=== PATIENT | female | born 1990 | race Caucasian/White ===

== ENCOUNTER 2017-03-26 14:18 | Emergency (ER) | payer MEDICAID ==
[~2017-03-26] VITALS: Ht 160 cm; Wt 108.9 kg
[~2017-03-26 14:18] MED LIST: PREN1CAP7 PO
--- NOTE | 2017-03-26 15:12 | PD ---
HPI Chief Complaint Decreased movement Travel History International Travel<30 Days: No Contact w/Intl Traveler<30Days: No Known Affected Area: No History of Present Illness HPI Patient is a 26-year-old female smoker who is @43 weeks who presents to triage with concerns for decreased movement. Denies bleeding, leakage of fluid, and painful contractions. She noticed the baby didn't move after she got up from sitting, which she notices usually happens. Did not notice a day removing after that. He was evaluated by Dr. Blount for consultation. Told she was eligible, C- section was scheduled for this Sunday. In the course of her , patient has not had any abnormal labs, procedures, or hospitalizations. Has had 2 abnormal Pap smears, was told that it would be repeated after the baby is born. No history of STDs. History Past Medical History Medical History: Denies Significant Hx Obstetric History Obstetric History Prior delivery was via (due to failure to progress) on 12/13/2010 at 41 weeks; baby girl, weight of 7 lbs. 7 oz. Past Surgical History Surgical History: No Previous Surgery Family History Family History: Negative Social History Alcohol Use: No Tobacco Use: Yes (5 pack years) Substance Abuse: No Allergies-Medications (Allergen,Severity, Reaction): Coded Allergies: No Known Allergies (Verified , 03/21/17) Home Meds Reported Medications W/O Vit A W/ Fe Fumar (Citranatal [place]) 27-1-260 Mg Cap, 1 CAP PO DAILY for Nutritional Supplement, #30 CAP 0 Refills 01/31/17 Review of Systems General / Constitutional: No: Weight Gain Eyes: No: Visual changes HENT: Headaches Cardiovascular: No: Chest Pain or Discomfort Respiratory: No: Short of Breath Gastrointestinal: No: Abdominal Pain Genitourinary: No: Urgency Neurologic: No: Headache Physical Exam Narrative GENERAL: Well-nourished, well-developed patient. SKIN: Warm and dry. HEAD: Normocephalic and atraumatic. EYES: No scleral icterus. No injection or drainage. ENT: No nasal drainage noted. Mucous membranes pink. Airway patent. NECK: Supple, trachea midline. No JVD. CARDIOVASCULAR: Regular rate and rhythm without murmurs, gallops, or rubs. RESPIRATORY: Breath sounds equal bilaterally. No accessory muscle use. ABDOMEN/GI: Abdomen soft, non-tender, bowel sounds present, no rebound, no guarding Gravid to 40 weeks size GENITOURINARY: External Genitalia: intact and normal in appearance Cervix: Posterior Dilatation: 1 cm Effacement: 0% Station: -3 Presentation: Vertex Membranes: Intact Uterine Contractions: None FHT's: Category: 1 Baseline: 150 Reactive: Yes Variability: Moderate Decels: None EXTREMITIES: No cyanosis or edema. BACK: Nontender without obvious deformity. No CVA tenderness. NEUROLOGICAL: Awake and alert. Motor and sensory grossly within normal limits. Five out of 5 muscle strength in all muscle groups. Normal speech. Data Data Orders Orders Vital Signs (Adult) .ON ADMISSION (03/26/17 15:02) ^ Labor Status (03/26/17 15:02) ^ Hydration (03/26/17 15:02) MDM Interpretation(s) Patient is a 26-year-old female who is at 43 weeks who presents for decreased movement. Patient was assessed via cervical exam, findings in line with normal . movement normal while in triage. Category 1 tracing seen on heart monitor. Patient to follow-up with OB this Sunday , scheduled for on Sunday. Plan -Ordered hydration -Ordered BPP, score was 8/8 -Follow up in OB clinic on Sunday -Report to OB triage if concerns with vaginal bleeding, contractions, decreased movement, or leakage of fluid -Plan for until patient's scheduled on Sunday Diagnosis Diagnosis: Primary Impression: 40 weeks gestation of Additional Impression: Decreased movement Qualified Codes: O36.8130 - Decreased movements, third trimester, not applicable or unspecified Disposition: 01 DISCHARGE HOME Condition: Stable Patient Instructions: General Instructions, Early Labor Signs (ED), Movement (ED) Bridgette Crawford MD R1 Mar 26, 2017 15:12
[2017-04-11] MEDS ORDERED: AMOX500T PO (10:05)
== END 2017-03-26 16:14 | disposition home or self-care (01) ==
LOC: HOBED 14:18
DX: O36.8130 Decreased fetal movements, third trimester, not applicable or unspecified (principal); Z3A.40 40 weeks gestation of pregnancy
CPT/HCPCS: 76816; 76819; 99284

== ENCOUNTER 2017-03-30 08:31 | Inpatient (IN) | payer MEDICAID ==
[2017-03-30] VITALS (18 sets, daily range): BP systolic 101–128; BP diastolic 52–70; PULSE 84–111; RESP 16–20; TEMP 97.6–98.2; O2SAT 96–98
[~2017-03-30] VITALS: Ht 160 cm; Wt 109.0 kg
[2017-03-30 09:31] LABS: AUTOMATED NEUTROPHIL # 9.9 TH/MM3 (1.8-7.7); BASOPHIL # 0.1 TH/MM3 (0-0.2); BASOPHIL % 0.5 % (0.0-2.0); EOSINOPHIL # 0.3 TH/MM3 (0-0.4); EOSINOPHIL % 1.9 % (0.0-4.0); HEMATOCRIT 34.6 % (35.0-46.0); HEMO FLAGS DIFF FINAL; LYMPH % 26.3 % (9.0-44.0); MEAN CORPUSCULAR HEMOGLOBIN 29.8 PG (27.0-34.0); MEAN CORPUSCULAR HGB CONC 33.2 % (32.0-36.0); MONO % 6.3 % (0.0-8.0); PLATELET COUNT 350 TH/MM3 (150-450); RED BLOOD COUNT 3.85 MIL/MM3 (4.00-5.30); WHITE BLOOD COUNT 15.3 TH/MM3 (4.0-11.0)
[2017-03-30 09:38] LABS: BACTERIA, URINE MANY /hpf; BLOOD, URINE NEG (NEG); COMMENT (UR) CULTURE INDICATED; CULTURE IF INDICATED CULTURE INDICATED; GLUCOSE,URINE NEG (NEG); KETONE, URINE NEG (NEG); MUCUS URINE FEW /lpf (OCC); NITRITE,URINE NEG (NEG); SQUAMOUS EPITHELIAL CELL URINE 3 /hpf (0-5); URINE COLOR YELLOW (YELLW/STRAW)
[2017-03-30] MEDS ORDERED: LACTATED RINGER'S 1000 ML INJ 1,000 ML IV ONE ×2 (10:25→12:00)
--- NOTE | 2017-03-30 10:26 | HHI.HP ---
HPI Chief Complaint Repeat Date Seen: Mar 30, 2017 Travel History International Travel<30 Days: No Contact w/Intl Traveler<30Days: No History of Present Illness HPI Patient is a 26 year old at 40-6/7 weeks gestation who presents today for repeat . She denies any vaginal bleeding or discharge. No gush or leaking of fluid. Positive movement. care with CFW. History Past Medical History Medical History: Denies Significant Hx Obstetric History Obstetric History Prior delivery was via (due to failure to progress) on 12/13/2010 at 41 weeks; baby girl, weight of 7 lbs. 7 oz. Past Surgical History Narrative Surgical Family History Family History: Negative Social History Alcohol Use: No Tobacco Use: Yes (5 pack years) Substance Abuse: No Allergies-Medications (Allergen,Severity, Reaction): Coded Allergies: No Known Allergies (Verified , 03/28/17) Home Meds Reported Medications W/O Vit A W/ Fe Fumar (Citranatal [place]) 27-1-260 Mg Cap, 1 CAP PO DAILY for Nutritional Supplement, #30 CAP 0 Refills 01/31/17 Review of Systems Except as stated in HPI: all other systems reviewed are Neg General / Constitutional: No: Fever, Chills Eyes: No: Visual changes HENT: No: Headaches Cardiovascular: No: Chest Pain or Discomfort, Palpitations Respiratory: No: Cough, Short of Breath Gastrointestinal: No: Nausea, Vomiting, Abdominal Pain Genitourinary: No: Dysuria, Pelvic Pain, Discharge, Vaginal Bleeding Musculoskeletal: No: Edema Neurologic: No: Headache Psychiatric: Substance Abuse (tobacco) Physical Exam Narrative GENERAL: Well-nourished, well-developed patient. SKIN: Warm and dry. HEAD: Normocephalic and atraumatic. EYES: No scleral icterus. No injection or drainage. ENT: No nasal drainage noted. Mucous membranes pink. Airway patent. NECK: Supple, trachea midline. No JVD. CARDIOVASCULAR: Regular rate and rhythm without murmurs, gallops, or rubs. RESPIRATORY: Breath sounds equal bilaterally. No accessory muscle use. ABDOMEN/GI: Abdomen soft, non-tender, bowel sounds present, no rebound, no guarding Gravid to 40 weeks size GENITOURINARY: External Genitalia: intact and normal in appearance Presentation: vertex Membranes: intact Uterine Contractions: occ FHT's: Category: I Baseline: 140 Reactive: + Variability: moderate Decels: none EXTREMITIES: No cyanosis or edema. BACK: Nontender without obvious deformity. No CVA tenderness. NEUROLOGICAL: Awake and alert. Motor and sensory grossly within normal limits. Normal speech. Caprini VTE Risk Assessment Caprini VTE Risk Assessment: No/Low Risk (score <= 1) Caprini Risk Assessment Model Point Value = 1 Point Value = 2 Point Value = 3 Point Value = 5 Age 41-60 Minor surgery BMI > 25 kg/m2 Swollen legs Varicose veins or History of unexplained or recurrent spontaneous Oral contraceptives or hormone replacement Sepsis (< 1 month) Serious lung disease, including pneumonia (< 1 month) Abnormal pulmonary function Acute myocardial infarction Congestive heart failure (< 1 month) History of inflammatory bowel disease Medical patient at bed rest Age 61-74 Arthroscopic surgery Major open surgery (> 45 min) Laparoscopic surgery (> 45 min) Malignancy Confined to bed (> 72 hours) Immobilizing plaster cast Central venous access Age >= 75 History of VTE Family history of VTE Factor V Leiden Prothrombin [id number] Lupus anticoagulant Anticardiolipin antibodies Elevated serum homocysteine Heparin-induced thrombocytopenia Other congenital or acquired thrombophilia Stroke (< 1 month) Elective arthroplasty Hip, pelvis, or leg fracture Acute spinal cord injury (< 1 month) Prophylaxis Regimen Total Risk Factor Score Risk Level Prophylaxis Regimen 0-1 Low Early ambulation 2 Moderate Order ONE of the following: *Sequential Compression Device (SCD) *Heparin 5000 units SQ BID 3-4 Higher Order ONE of the following medications: *Heparin 5000 units SQ TID *Enoxaparin/Lovenox 40 mg SQ daily (WT < 150 kg, CrCl > 30 mL/min) *Enoxaparin/Lovenox 30 mg SQ daily (WT < 150 kg, CrCl > 10-29 mL/min) *Enoxaparin/Lovenox 30 mg SQ BID (WT < 150 kg, CrCl > 30 mL/min) AND/OR *Sequential Compression Device (SCD) 5 or more Highest Order ONE of the following medications: *Heparin 5000 units SQ TID (Preferred with Epidurals) *Enoxaparin/Lovenox 40 mg SQ daily (WT < 150 kg, CrCl > 30 mL/min) *Enoxaparin/Lovenox 30 mg SQ daily (WT < 150 kg, CrCl > 10-29 mL/min) *Enoxaparin/Lovenox 30 mg SQ BID (WT < 150 kg, CrCl > 30 mL/min) AND *Sequential Compression Device (SCD) Data Data Vital Signs Reviewed: Yes Orders Orders Complete Blood Count With Diff (03/30/17 09:20) Type And Screen (03/30/17 09:20) Urinalysis - C+S If Indicated (03/30/17 09:20) Specimen To Be Collected PRN (03/30/17 09:20) Code Status (03/30/17 09:33) Vital Signs (Adult) .ON ADMISSION (03/30/17 09:33) Activity Oob Ad Geetha (03/30/17 09:33) Heart (03/30/17 09:33) Urinary Catheter Management ANDERSON.Q8H (03/30/17 09:33) ^ Preps (03/30/17 09:33) Scd / Delgado / Foot Pump ANDERSON.QSHIFT (03/30/17 09:33) ^ Ultrasound For Locatio (03/30/17 09:33) Diet Npo (03/30/17 Breakfast) Urine Culture (03/30/17 09:10) Lactated Ringer's 1000 Ml Inj (Lr 1000 M (03/30/17 10:25) Lactated Ringer's 1000 Ml Inj (Lr 1000 M (03/30/17 10:55) Cefazolin 2 Gm Premix (Ancef 2 Gm Premix (03/30/17 11:30) Citric Acid-Sodium Citrate Liq (Bicitra (03/30/17 12:00) Group B Strep: Negative Labs Laboratory Tests Test 03/30/17 09:10 White Blood Count 15.3 Red Blood Count 3.85 Hemoglobin 11.5 Hematocrit 34.6 Mean Corpuscular Volume 90.0 Mean Corpuscular Hemoglobin 29.8 Mean Corpuscular Hemoglobin Concent 33.2 Red Cell Distribution Width 14.0 Platelet Count 350 Mean Platelet Volume 9.9 Neutrophils (%) (Auto) 65.0 Lymphocytes (%) (Auto) 26.3 Monocytes (%) (Auto) 6.3 Eosinophils (%) (Auto) 1.9 Basophils (%) (Auto) 0.5 Neutrophils # (Auto) 9.9 Lymphocytes # (Auto) 4.0 Monocytes # (Auto) 1.0 Eosinophils # (Auto) 0.3 Basophils # (Auto) 0.1 CBC Comment DIFF FINAL Differential Comment Urine Color YELLOW Urine Turbidity HAZY Urine pH 7.0 Urine Specific [place] 1.015 Urine Protein TRACE Urine Glucose (UA) NEG Urine Ketones NEG Urine Occult Blood NEG Urine Nitrite NEG Urine Bilirubin NEG Urine Urobilinogen LESS THAN 2.0 Urine Leukocyte Esterase LARGE Urine RBC 1 Urine WBC 4 Urine Squamous Epithelial Cells 3 Urine Amorphous Sediment RARE Urine Bacteria MANY Urine Mucus FEW Microscopic Urinalysis Comment CULTURE INDICATED Date/Time Source Procedure Growth Status 03/30/17 09:10 Urine Clean Catch Urine Culture Pending Received Assessment/Plan Assessment and Plan 26 year old at 40-6/7 weeks gestation. 1. IUP- Category I tracing, reassuring. 2. Repeat . 3. Tobacco use. 4. GBS negative. dw Mary Nichols MD, R3 Mar 30, 2017 10:26
[2017-03-30] MEDS ORDERED: EPIDURAL-DIPHENHYDRAMINE HCL 50 MG/ML VIAL IV PUSH PRN (10:30)
[2017-03-30] MEDS ORDERED: EPIDURAL-DO NOT ADMINISTER ANTICOAGULANTS PRN (10:30)
[2017-03-30] MEDS ORDERED: EPIDURAL-NALOXONE HCL 0.4 MG/ML AMP IV PUSH PRN (10:30)
[2017-03-30] MEDS ORDERED: EPIDURAL-NO SYSTEMIC NARCOTICS PRN (10:30)
[2017-03-30] MEDS ORDERED: EPIDURAL-DIPHENHYDRAMINE HCL 50 MG CAP PO PRN (10:30)
[2017-03-30] MEDS ORDERED: LACTATED RINGER'S 1000 ML INJ 1,000 ML IV SCH (10:55)
[2017-03-30] MEDS ORDERED: ceFAZolin 2 GM PREMIX 50 ML IV SCH (11:30)
[2017-03-30] MEDS ORDERED: SIMETHICONE 80 MG CHEWABLE TAB PO PRN (12:00)
[2017-03-30] MEDS ORDERED: OXYTOCIN 30 UNITS-500ML PREMIX 500 ML IV ONE (12:00)
[2017-03-30] MEDS ORDERED: OXYTOCIN 10 UNIT/ML AMP IV ONE (12:00)
[2017-03-30] MEDS ORDERED: CITRIC ACID-SODIUM CITRATE LIQ 30 ML UDC PO SCH (12:00)
[2017-03-30] MEDS ORDERED: ePHEDrine/NS 25 MG/5 ML SYR IV ONE (12:00)
[2017-03-30] MEDS ORDERED: ceFAZolin INJ 1,000 MG VIAL IV ONE (12:00)
[2017-03-30] MEDS ORDERED: ONDANSETRON HCL 4 MG/2 ML VIAL IV PUSH PRN (12:00)
[2017-03-30] MEDS ORDERED: SODIUM CHLORIDE 0.9% FLUSH 10 ML FLUSH IV FLUSH PRN (12:00)
[2017-03-30] MEDS ORDERED: MORPHINE SULFATE PF 5 MG/10 ML VIAL ONE (12:00)
[2017-03-30] MEDS ORDERED: ONDANSETRON HCL 4 MG/2 ML VIAL IV ONE (12:00)
[2017-03-30] MEDS ORDERED: MORPHINE SULFATE 4 MG/ML INJ IV PUSH PRN (16:00)
[2017-03-30] MEDS ORDERED: KETOROLAC TROMETHAMINE 30 MG/ML (IVP) VIAL IV PUSH PRN (16:00)
[2017-03-30] MEDS: LACTATED RINGER'S 1000 ML INJ 1,000 ML IV SCH (16:55)
[2017-03-30] MEDS ORDERED: ZOLPIDEM TARTRATE 5 MG TAB PO PRN (21:00)
--- NOTE | 2017-03-30 21:11 | MP ---
cc: ELY BLOUNT MD DATE OF SURGERY 03/30/17 PREOPERATIVE DIAGNOSIS Previous caesarean section for repeat section to term POSTOPERATIVE DIAGNOSIS Previous caesarean section for repeat section to term PROCEDURE Repeat low transverse caesarean section SURGEON Harsh Blount MD DEVELOPMENT COACH [facility] ANESTHESIA Spinal. PREOPERATIVE NOTE The patient is a 26 year old white female, previous caesarean section, now 39 weeks for repeat caesarean section. PROCEDURE IN DETAIL The patient was taken to the operating room, placed in supine position on the operating room table. Adequate spinal anesthesia administered. She was prepped and draped for abdominal surgery. Old Pfannenstiel incision was excised out. Incision carried to the fascia, fascia incised laterally and then reflected off the rectus muscle. Peritoneal cavity entered sharply. The incision extended superiorly and inferiorly and then stretched open. The uterus was noted to have a band of adhesions on the left side. The bladder was reflected off the lower uterine segment and a transverse hysterotomy was made and extended with bandage scissors. Amniotic sac ruptured. Clear fluid noted. A male was delivered at 10:55 a.m. weight 3840 grams, Apgars 8 and 9. There were no complications. Cord blood obtained. Placenta manually extracted. The uterus was exteriorized. Band of adhesions was bovied through. Hysterotomy closed with running layer of 0 chromic followed by imbricating suture of same. Hemostasis was achieved. The area where the band of adhesions had been was oozing steadily and required half a dozen stick ties of chromic to get hemostasis and [place] was placed over this area. Ovaries and tubes noted normal on both sides. The uterus was replaced in peritoneal cavity. Hemostasis was achieved. The muscle reapproximated using stick ties of chromic. Fascia was closed in running layer of 0 Vicryl. Subcutaneous tissue was reapproximated with 3-0 plain gut suture. Skin closed with 3-0 Monocryl subcuticular stitch and the new seven-day dressing was placed on the incision. The estimated blood loss 500 mL. There were no complications. Sponge and needle counts correct times two. The patient taken to recovery in stable condition. MD ABDIRAHMAN Ruth/ /12:18 PM 8:54 PM
[2017-03-30] MEDS ORDERED: OXYTOCIN 30 UNITS-500ML PREMIX 500 ML IV PRN (22:00)
[2017-03-30] MEDS: IBUPROFEN 600 MG TAB PO PRN (23:06)
[2017-03-30] MEDS: ACETAMINOPHEN 325 MG TAB PO PRN (23:06)
[2017-03-31 01:00] VITALS: BP 108/45; PULSE 91; RESP 16; TEMP 99
[2017-03-31] MEDS: IBUPROFEN 600 MG TAB PO PRN ×4 (04:59→23:06)
[2017-03-31] MEDS: ACETAMINOPHEN 325 MG TAB PO PRN (04:59)
[2017-03-31] MEDS: LACTATED RINGER'S 1000 ML INJ 1,000 ML IV SCH (05:25)
[2017-03-31 05:29] LABS: AUTOMATED NEUTROPHIL # 13.8 TH/MM3 (1.8-7.7); BASOPHIL % 0.3 % (0.0-2.0); EOSINOPHIL # 0.2 TH/MM3 (0-0.4); EOSINOPHIL % 1.1 % (0.0-4.0); HEMATOCRIT 25.7 % (35.0-46.0); HEMO FLAGS DIFF FINAL; LYMPH % 17.7 % (9.0-44.0); LYMPHOCYTE # 3.2 TH/MM3 (1.0-4.8); MEAN CELL VOLUME 90.8 FL (80.0-100.0); MEAN CORPUSCULAR HEMOGLOBIN 30.5 PG (27.0-34.0); MEAN CORPUSCULAR HGB CONC 33.6 % (32.0-36.0); MONO % 5.6 % (0.0-8.0); NEUT % 75.3 % (16.0-70.0); PLATELET COUNT 266 TH/MM3 (150-450); RED BLOOD COUNT 2.82 MIL/MM3 (4.00-5.30); RED CELL DISTRIBUTION WIDTH 13.9 % (11.6-17.2); WHITE BLOOD COUNT 18.3 TH/MM3 (4.0-11.0)
[2017-03-31 05:30] VITALS: BP 101/56; PULSE 86; RESP 16; TEMP 98.5
[2017-03-31] MEDS ORDERED: ceFAZolin 1,000 MG/NS 100 ML IV SCH ×2 (06:00)
--- NOTE | 2017-03-31 07:49 | HHI.OB ---
Subjective Post Operative Day: 1 Remarks doing well , pain moderate , ambulating to Bathroom , bleeding normal Objective Vitals/I&O Vital Signs Date Time Temp Pulse Resp B/P (MAP) Pulse Ox O2 Delivery O2 Flow Rate FiO2 03/31/17 05:30 98.5 86 16 101/56 (71) 03/31/17 01:00 99.0 91 16 108/45 (66) 03/30/17 21:42 17 03/30/17 21:00 97.7 85 03/30/17 21:00 101/69 (80) 03/30/17 20:20 20 03/30/17 20:00 17 03/30/17 19:00 18 03/30/17 19:00 17 03/30/17 17:12 84 128/70 (89) 03/30/17 17:12 97.9 20 03/30/17 16:22 19 03/30/17 15:03 20 03/30/17 14:30 17 03/30/17 14:00 17 03/30/17 13:10 97.6 85 16 110/64 (79) 03/30/17 12:47 93 18 124/60 (81) 98 03/30/17 12:44 97.7 03/30/17 12:34 85 18 98 03/30/17 12:30 105/52 (69) 03/30/17 12:15 108/57 (74) 03/30/17 12:14 97 03/30/17 12:14 87 18 03/30/17 12:14 125/60 (81) 03/30/17 11:57 98.2 96 03/30/17 11:57 111 18 128/67 (87) Result Diagram: 03/31/17 0503 Objective Remarks GENERAL: Well-nourished, well-developed patient. CARDIOVASCULAR: Regular rate and rhythm without murmurs, gallops, or rubs. RESPIRATORY: Breath sounds equal bilaterally. No accessory muscle use. ABDOMEN/GI: Abdomen soft, non-tender, bowel sounds present. Incision: Clean, dry and intact.silver bandage in place Fundus: Firm, non-tender at umbilicus. GENITOURINARY: Light to moderate bleeding. EXTREMITIES: No cyanosis or edema, non-tender, without signs of DVT. Medications and IVs Current Medications Medications (Trade) Dose Ordered Sig/Venkatesh Route Start Time Stop Time Status Last Admin Cefazolin Sodium/ Dextrose 50 ml @ 100 mls/hr ASSOCIATE PRINCIPAL IV 03/30/17 11:30 04/03/17 11:29 (Bicitra Liq) 30 ml ASSOCIATE PRINCIPAL PO 03/30/17 12:00 04/03/17 11:59 Lactated Ringer's 1,000 ml @ 100 mls/hr Q10H IV 03/30/17 16:55 03/31/17 12:54 03/31/17 05:25 Oxytocin 500 ml @ 100 mls/hr UNSCH X1 PRN IV 03/30/17 22:00 03/31/17 21:59 (NS Flush) 2 ml UNSCH PRN IV FLUSH 03/30/17 12:00 (Mylicon Chew) 80 mg QID PRN PO 03/30/17 12:00 (Tylenol) 650 mg Q6H PRN PO 03/30/17 12:00 03/31/17 04:59 (Motrin) 600 mg Q6H PRN PO 03/30/17 12:00 03/31/17 04:59 (Percocet 5-325 Mg) 1 tab Q4H PRN PO 03/30/17 12:00 (Percocet 5-325 Mg) 2 tab Q4H PRN PO 03/30/17 12:00 (Denise-Colace) 2 tab Q12H PRN PO 03/30/17 12:00 (Ambien) 5 mg HS PRN PO 03/30/17 21:00 (M-M-R Ii Inj) 0.5 ml ONCE ONCE SQ 03/31/17 16:00 03/31/17 16:01 (Boostrix Inj) 0.5 ml ONCE ONCE IM 03/31/17 16:00 03/31/17 16:01 03/31/17 01:16 (Zofran Inj) 4 mg Q6H PRN IV PUSH 03/30/17 12:00 03/30/17 15:03 Miscellaneous Information NO SYSTEMIC NARCOTICS TO BE GIVEN FO... UNSCH PRN .XX 03/30/17 10:30 03/31/17 10:29 (Narcan Inj) 0.4 mg UNSCH PRN IV PUSH 03/30/17 10:30 03/31/17 10:29 (Benadryl Inj) 25 mg Q6H PRN IV PUSH 03/30/17 10:30 03/31/17 10:29 (Benadryl) 50 mg Q6H PRN PO 03/30/17 10:30 03/31/17 10:29 Miscellaneous Information ALL NURSING DEPARTMENTS UNSCH PRN .XX 03/30/17 10:30 03/31/17 10:29 (Toradol Inj) 15 mg Q6H PRN IV PUSH 03/30/17 16:00 04/04/17 15:59 03/30/17 16:22 Cefazolin Sodium 1000 mg/Sodium Chloride 100 ml @ 200 mls/hr Q8HR IV 03/31/17 06:00 03/31/17 08:00 03/31/17 05:26 Assessment/Plan Assessment and Plan 26 year old RCS doing well advance postop care progressively 2. Repeat . 4. GBS negative. dw Frankie Donahue II, MD Mar 31, 2017 07:49
[2017-03-31 08:00] VITALS: BP 100/46; PULSE 79; RESP 16; TEMP 98.1
[2017-03-31] MEDS: oxyCODONE/ACETAMINOPHEN 5 MG/325 MG TAB PO PRN ×3 (11:10→21:21)
[2017-03-31] MEDS ORDERED: MEASLES, MUMPS, RUBELLA VACCINE 0.5 ML VIAL SQ ONE (16:00)
[2017-03-31] MEDS ORDERED: DIPHTH/TETANUS/ACEL PERTUSSIS (BOOSTER) 0.5 ML VIAL/PFS IM ONE (16:00)
[2017-03-31] MEDS: DOCUSATE SODIUM 50 MG/SENNA 8.6 MG TAB PO PRN (16:39)
[2017-03-31 20:40] VITALS: BP 118/66; PULSE 94; RESP 16; TEMP 98.5
[2017-04-01] MEDS: oxyCODONE/ACETAMINOPHEN 5 MG/325 MG TAB PO PRN ×3 (01:28→11:31)
[2017-04-01] MEDS: IBUPROFEN 600 MG TAB PO PRN ×2 (05:14→11:31)
[2017-04-01 08:00] VITALS: BP 102/65; PULSE 88; RESP 16; TEMP 97.8
[2017-04-01 08:21] LABS: HEMATOCRIT 24.4 % (35.0-46.0); MEAN CELL VOLUME 91.6 FL (80.0-100.0); MEAN CORPUSCULAR HEMOGLOBIN 30.5 PG (27.0-34.0); MEAN CORPUSCULAR HGB CONC 33.3 % (32.0-36.0); PLATELET COUNT 277 TH/MM3 (150-450); RED BLOOD COUNT 2.66 MIL/MM3 (4.00-5.30); RED CELL DISTRIBUTION WIDTH 14.3 % (11.6-17.2); REVIEW FLAG FINAL; WHITE BLOOD COUNT 16.5 TH/MM3 (4.0-11.0)
[2017-04-01] MEDS ORDERED: OXYC1TAB63 PO (10:17)
[2017-04-01] MEDS ORDERED: IBUP-232 PO (10:17)
--- NOTE | 2017-04-01 10:17 | HHI.DCPOC ---
Discharge Care Plan Diagnosis: (1) delivery, delivered, current hospitalization Report Symptoms to Your Doctor -Temperature above 100.5 degrees -Redness, of incision or excessive or foul smelling drainage -Unusual pain or calf pain -Increased vaginal bleeding -Painful or difficulty urinating -Feelings of extreme sadness or anxiety after 2 weeks Goals to Promote Your Health * To prevent worsening of your condition and complications * To maintain your health at the optimal level Directions to Meet Your Goals Take your medications as prescribed Follow your dietary instruction Follow activity as directed Ensure plenty of rest for recovery Drink fluids for hydration Keep your appointments as scheduled Take your immunizations and boosters as scheduled If your symptoms worsen call your PCP, if no PCP go to Urgent Care Center or Emergency Room Smoking is Dangerous to Your Health. Avoid second hand smoke Call the 24-hour crisis hotline for domestic abuse at Skip Gee MD R2 Apr 01, 2017 10:17
--- NOTE | 2017-04-01 11:25 | HHI.OB ---
Subjective Remarks 26 year old female s/p C/S at 40/6 wks gestation, POD 2. AFVSS. Patient reports she is feeling well. Bleeding is decreasing and pain is well- controlled. She is breast feeding and bonding well with baby. Ambulating without difficulties. She is tolerating a diet without nausea or vomiting. She has not had a bowel movement. She has passed gas. Denies chest pain, dysuria, shortness of breath, or calf pain. (Skip Gee MD R2) Remarks Patient seen and evaluated with resident under direct supervision, agree with assessment and plan. (Emanuel Trujillo MD) Objective Vitals/I&O Vital Signs Date Time Temp Pulse Resp B/P (MAP) Pulse Ox O2 Delivery O2 Flow Rate FiO2 04/01/17 08:00 97.8 88 16 102/65 (77) 03/31/17 20:40 98.5 03/31/17 20:40 94 16 118/66 (83) (Skip Gee MD R2) Result Diagram: 04/01/17 0803 Objective Remarks GENERAL: Well-nourished, well-developed patient. CARDIOVASCULAR: Regular rate and rhythm without murmurs, gallops, or rubs. RESPIRATORY: Breath sounds equal bilaterally. No accessory muscle use. ABDOMEN/GI: Abdomen soft, non-tender, bowel sounds present. Incision: Clean, dry and intact. silver bandage in place Fundus: Firm, non-tender at umbilicus. GENITOURINARY: Light to moderate bleeding. EXTREMITIES: No cyanosis or edema, non-tender, without signs of DVT. Medications and IVs Current Medications Medications (Trade) Dose Ordered Sig/Venkatesh Route Start Time Stop Time Status Last Admin Cefazolin Sodium/ Dextrose 50 ml @ 100 mls/hr DESK OFFICER IV 03/30/17 11:30 04/03/17 11:29 (Bicitra Liq) 30 ml DESK OFFICER PO 03/30/17 12:00 04/03/17 11:59 (NS Flush) 2 ml UNSCH PRN IV FLUSH 03/30/17 12:00 (Mylicon Chew) 80 mg QID PRN PO 03/30/17 12:00 04/01/17 05:14 (Tylenol) 650 mg Q6H PRN PO 03/30/17 12:00 03/31/17 04:59 (Motrin) 600 mg Q6H PRN PO 03/30/17 12:00 04/01/17 05:14 (Percocet 5-325 Mg) 1 tab Q4H PRN PO 03/30/17 12:00 03/31/17 21:21 (Percocet 5-325 Mg) 2 tab Q4H PRN PO 03/30/17 12:00 04/01/17 05:14 (Denise-Colace) 2 tab Q12H PRN PO 03/30/17 12:00 03/31/17 16:39 (Ambien) 5 mg HS PRN PO 03/30/17 21:00 (Zofran Inj) 4 mg Q6H PRN IV PUSH 03/30/17 12:00 03/30/17 15:03 (Toradol Inj) 15 mg Q6H PRN IV PUSH 03/30/17 16:00 04/04/17 15:59 03/30/17 16:22 (Skip Gee MD R2) Assessment/Plan Assessment and Plan 26 yo female s/p C/S, POD 2 - AFVSS - Continue routine care - Motrin and Percocet PRN pain - Encourage OOB - Pelvic rest x 6 wks. Will need 1 week incision check. - Contraception: Paragard (to obtain from [facility]) - D/C today (Skpi Gee MD R2) Skip Gee MD R2 Apr 01, 2017 11:25 Emanuel Trujillo MD Apr 07, 2017 10:10
[2017-04-01] MEDS: DOCUSATE SODIUM 50 MG/SENNA 8.6 MG TAB PO PRN (11:31)
[2017-04-11] MEDS ORDERED: AMOX500T PO (10:05)
== END 2017-04-01 12:26 | disposition home or self-care (01) | DRG 766 ==
LOC: H2EB 08:31 → H1EA 12:57
PROVIDERS: ADMIT Obstetrics & Gynecology Maternal & Fetal Medicine; ATTEND Obstetrics & Gynecology Maternal & Fetal Medicine
PROC: 10D00Z1 Extraction of Products of Conception, Low, Open Approach (ICD-10-PCS; principal; 2017-03-30)
DX: O34.211 Maternal care for low transverse scar from previous cesarean delivery (principal); F17.200 Nicotine dependence, unspecified, uncomplicated; O99.334 Smoking (tobacco) complicating childbirth; Z37.0 Single live birth; Z3A.40 40 weeks gestation of pregnancy
CPT/HCPCS: 59025; 81001; 85025; 85027; 86850; 86900; 86901; 87086; 90715; J0690; J1885; J2274; J2405; J2590; J3010; J7120